=== PATIENT | male | born 1960 | race Caucasian/White ===

== ENCOUNTER → 2016-02-22 | Day surgery (SDC) | payer BC ==
[~2016-02-22] MED LIST: Buffered Lidocaine 1% SYR 3ML* 3 ML/SYR SYRINGE INTRADERM ONE; Buffered Lidocaine 1% SYR 3ML* 3 ML/SYR SYRINGE ONE; Bupivacaine 0.5% W/EPI SDV* 30 ML VIAL ONE; DiMENhydriNATE IV* 50 MG/ML VIAL IV PUSH PRN; EPINEPHrine AMP 1 MG/ML ONE; Famotidine TAB* 20 MG ONE; Famotidine TAB* 20 MG PO ONE; HYDROcodone/ACETAMIN 5-325 MG* 1 TAB ONE; HYDROcodone/ACETAMIN 5-325 MG* 1 TAB PO PRN; HYDROmorphone INJ* 1 MG/ML CARPUJECT SYRINGE ONE; Metoclopramide TAB* 10 MG ONE; Metoclopramide TAB* 10 MG PO ONE; Midazolam* 1 MG/ML 5 ML VIAL (5 MG) ONE; Ondansetron INJ* 2 MG/ML VIAL IV PRN; Propofol* 10 MG/ML 20 ML BTL IV PUSH ONE; Sodium Citrate/Citric Acid* 15 ML UDC ONE; Sodium Citrate/Citric Acid* 15 ML UDC PO ONE; Succinylcholine* 20 MG/ML 10 ML VIAL ONE; ceFAZolin 1 GM in Dextrose (*) 1 GM/50 ML BAG IVPB ONE; ceFAZolin 2 GM PREMIX (*) 2 GM/50 ML BAG IVPB ONE; celeCOXIB CAP* 100 MG ONE; celeCOXIB CAP* 200 MG PO ONE; fentaNYL* 50 MCG/ML 2 ML VIAL (100 MCG VIAL) ONE
[2016-02-22] MEDS: HYDROmorphone INJ* 1 MG/ML CARPUJECT SYRINGE IV PRN ×2 (12:32→12:50)
[2016-02-22] MEDS: fentaNYL* 50 MCG/ML 2 ML VIAL (100 MCG VIAL) IV PRN ×2 (12:33→12:51)
[2016-02-22 13:47] VITALS: BP 138/87
--- NOTE | 2016-02-24 15:43 | OP ---
OPERATIVE REPORT: DATE OF OPERATION: 02/22/16 DATE OF : 56 SURGEON: Ian Kumar MD. BOAT DIESEL MOTOR MECHANIC: JACQUELINE Shetty. ANESTHESIA: General anesthesia, regional anesthesia. PRE-OP DIAGNOSES: 1. Left shoulder subacromial impingement. 2. Left shoulder AC joint arthritis. 3. Left shoulder possible proximal biceps tendonitis. 4. Mild left shoulder glenohumeral joint osteoarthritis. POST-OP DIAGNOSES: 1. Left shoulder subacromial impingement. 2. Left shoulder AC joint arthritis. 3. Left shoulder superior labral tear. 4. No left shoulder proximal biceps tendonitis. 5. Mild left shoulder glenohumeral joint osteoarthritis. OPERATIVE PROCEDURES: 1. Left shoulder arthroscopic distal clavicle resection. 2. Left shoulder arthroscopic subacromial decompression. 3. Left shoulder arthroscopic debridement to the superior labrum as well as release, arthroscopic, of the proximal biceps tendon. INDICATIONS: The patient is a 55-year-old man, right-hand dominant, self-employed welder fitter apprentice and [email or web address] with a long history of bilateral shoulder pain. He had much pain with pushing, pulling, and li fting of heavy equipment, as heavy as 100 pounds that he uses at work. The patient complained of a long history of superior pain as well as lateral upper arm pain, left worse than right. He had been seen by Dr. Hair and Dr. Garcia many times in previous years with treatment including cortisone i njections of bilateral shoulders as well as physical therapy as well as long courses of NSAID use. Of note, when the patient was being worked up several years ago by Dr. Hair and Dr. Garcia, x-rays of the right shoulder showed a fibrous benign lesion, likely, but the patient was referred to [facility] to see a tumor doctor just to make sure. The tumor doctor cleared him and told him that this wa s in fact just a fibrous benign lesion, but the patient stopped his orthopedic clinic visits for sev eral years thereafter. The patient has been using a lidocaine patch more recently over the left trini ulder. Exam had shown positive Neer and Cabrera sign, AC joint tenderness to palpation and pain wit h cross-body abduction. The proximal biceps in the bicipital groove was tender to palpation, althou gh there was a negative Speed's test. Of note, the patient is on chronic narcotics for lumbago and weighs 300 pounds for a BMI of 40.7. He had no night pain, no neck pain, and no numbness and tingli ng. X-rays showed mild to moderate glenohumeral joint narrowing, but he did not have significant or really any loss of passive range of motion of the shoulder and his complaints on exam were otherwis e consistent with his pain being caused by AC joint arthritis and subacromial impingement rather char n the glenohumeral joint arthritis itself. X-rays showed AC joint narrowing and bony hypertrophy an d an MRI showed AC joint osteoarthritis and tendinosis of the supraspinatus. It also showed osteoph ytes in the glenohumeral joint. The patient opted for surgical management. ANTIBIOTICS: Ancef 3 g IV. ESTIMATED BLOOD LOSS: Minimal. COMPLICATIONS: None. SPECIMENS: None. IMPLANTS: None. DESCRIPTION OF PROCEDURE: Preoperative written consent. Operative extremity was marked in preopera tive holding. The patient was taken back to the operating and placed supine on the operating room t able. Anesthesia then did a regional interscalene block. The patient was then placed on the operat ing room table and sedated and intubated. He was then turned into the lateral decubitus position wi th the left side up. A chatterjee bag was insufflated, all bony prominences were padded, and an axillary roll was placed. The left upper arm was placed in 15 pounds of traction. The left shoulder was pre pped and draped. Surgical time-out was performed. The left shoulder was entered from posterior wit h a spinal needle and 30 mL of normal saline was injected. A standard posterior glenohumeral joint portal was then made. Diagnostic arthroscopy was commenced. There was no supraspinatus or infraspi natus or subscapularis rotator cuff tear visible. There was narrowing of the glenohumeral joint spa ce and it seemed, some fraying and thinning of the articular cartilage on both sides. The patient w as noted to have very large labrum, anterior superior and posterior. The biceps itself did not have fraying or tearing, but I could not visualize yet the superior labrum. An anterior glenohumeral po rtal was established under direct visualization. I then used a shaver and an arthroscopic probe to lift up the superior labrum. This showed there was at least 5 mm lift off the superior labrum and t here was clearly an unstable superior labral tear. I debrided some of the superior labrum, its fray ed edges with an arthroscopic shaver. I then used arthroscopic scissors to cut the proximal biceps just off its origin. Instruments and probe were removed from the glenohumeral joint. I then entere d the subacromial space from anterior and posterior. I then established a lateral subacromial connie l under direct visualization. Significant bursitis was encountered and this was debrided with an ar throscopic shaver. I then used an arthroscopic jessica to resect approximately 5 mm of the inferior un dersurface of the anterior hook of the acromion. The AC joint was then visualized. Debrided signif icant amount of bursitis around it. The AC joint itself was difficult to visualize given that there was really no space whatsoever between the two bones. I found it nicely by using a spinal needle f rom above. I then debrided 8 mm of the distal end of the clavicle using arthroscopic jessica. All ins truments and fluid were removed from the subacromial space. Of note, no rotator cuff tear had been visible from the subacromial space also. Skin incisions were closed with [id number] stitches u sing nylon 4-0 sutures. Xeroform, 4x4s, ABD, foam tape. The patient was turned to the supine positi on, awakened and extubated, and brought to the PACU. DISPOSITION: The patient postoperatively will receive oxycodone for pain control, over and above th e baseline Vicodin 10/325 that he takes for his lumbago daily. He also received Keflex and aspirin. He will follow up with me 10 to 14 days postoperatively and he will wean out of the sling in the n ext several days as comfort allows. [id number]/[facility] #: [id number]
== END | disposition home or self-care (01) ==
LOC: OR 07:44
PROVIDERS: ATTEND Orthopaedic Surgery
DX: M75.42 Impingement syndrome of left shoulder (principal); M19.012 Primary osteoarthritis, left shoulder; Z87.891 Personal history of nicotine dependence; E66.01 Morbid (severe) obesity due to excess calories; I45.10 Unspecified right bundle-branch block
CPT/HCPCS: A9270-GY; J0171; J0330; J0690; J1170; J2250; J2704; J3010

== ENCOUNTER 2018-12-12 08:36 | Emergency (ER) | payer BC ==
--- OUTSIDE RECORDS SUMMARY | 2018-12-12 08:51 | XMS REPORT | Continuity of Care Document ---
:1960 External Reference #:[id number] Author Name Augie Santana M.D. Address [address] [facility] [address] [place] [address] Care Team Providers Name Role Phone HCP given Care Team Information Supervisor [facility] - Pain Medicine Care Team Information Supervisor Tellers [phone] Luis Miguel Acevedo DO - Pain Medicine Care Team Information Supervisor Tellers [phone] Problems Active Problems Provider Date Essential hypertension Augie Santana M.D. Onset: 07/08/2017 Chronic pain syndrome Augie Santana M.D. Onset: 07/08/2017 Migraine without aura, not refractory Augie Santana M.D. Onset: 06/30/2018 Long-term current use of opiate analgesic Augie Santana M.D. Onset: 2018 drug Obesity Augie Santana M.D. Onset: 06/30/2018 Low back pain Augie Santana M.D. Onset: 06/30/2018 Degeneration of lumbar intervertebral disc Augie Santana M.D. Onset: 06/30 Alcohol abuse Augie Santana M.D. Onset: 03/22/2018 Opioid dependence with withdrawal Auige Santana M.D. Onset: 03/22/2018 Social History Type Date Description Comments Sex Unknown Tobacco Use Start: Unknown End: Former Cigarette Smoker quit in 1999 Unknown Smoking Status Reviewed: 06/02/17 Former Cigarette Smoker quit in 1999 ETOH Use 06/02/2017 Currently consumes alcohol "quite a bit", mainly on weekends, will have 18 light beers over the weekend, may have a couple of beers on weekend nights. Allergies, Adverse Reactions, Alerts Description No Known Drug Allergies Medications Active Medications SIG Qnty Indications Ordering Date Provider Methadone HCL 1 tab by mouth 90tabs G89.4 Silcoff, 10/01/2018 5mg 2-3x/day for chronic Mario Ghosh Tablets pain Hydrocodone-Acetami 1 tab up to 4x/day 120tabs G89.4 Silcoff, 09/08/2018 nophen for breakthrough Mario Ghosh 10-325mg pain Tablets Losartan take one tablet by 90tabs I10 Silcoff, 08/30/2018 Potassium/Hydrochlo mouth every morning Mario Ghosh rothiazide for high blood pressure 100-12.5mg Tablets Amlodipine Besylate take 1 tablet by 90tabs I10 Silcoff, 06/01/2017 mouth every day for Mario Ghosh 10mg Tablets high blood pressure Sumatriptan take 1/2-1 tablet by 9tabs G43.009 Silcoff, 06/01/2017 Succinate mouth at first sign Mario Ghosh 100mg of intense headache; Tablets may repeat in 2 hours if migraine partially relieved; max 3/wk Melatonin prn sleep Unknown 06/01/2017 Zzzquil prn sleep Unknown 06/01/2017 50mg/30ML Liquid History Medications Methadone HCL 1 tab by mouth 90tabs G89.4 Augie Santana, 09/08/2018 - 5mg 3x/day for M.D. 10/01/2018 Tablets chronic pain Methadone HCL 1 tab by mouth 20tabs G89.4 Augie Santana, 08/30/2018 - 5mg twice a day for M.D. 09/08/2018 Tablets chronic pain; after 3 days (ie 4th day on this med) may increase to 1.5 tabs 2x/d Immunizations CPT Code Status Date Vaccine Lot # [id number] Given 10/28/2017 Shingrix Zoster (Shingles) Vaccine (HZV) [id number] Recomb,Subnit,Adjuvanted [id number] Given 10/28/2017 Influenza Virus Vaccine, Quadrivalent, Split, [id number] Preservative Free [id number] Given 06/02/2017 Shingrix Zoster (Shingles) Vaccine (HZV) [id number] Recomb,Subnit,Adjuvanted Vital Signs Date Vital Result Comment 11/02/2018 4:57pm BP Systolic 148 mmHg BP Diastolic 80 mmHg 10/01/2018 4:07pm BP Systolic 136 mmHg BP Diastolic 80 mmHg Height 71.50 inches 5'11.50" Weight 339.00 lb BMI (Body Mass Index) 46.6 kg/m2 Results Test Date Facility Test Result H/L Range Note Basic Metabolic Panel 10/29/2018 [facility] Sodium 138 mmol/L Normal 135-145 [phone] Potassium 4.2 mmol/L Normal 3.5-5.0 Chloride 106 mmol/L Normal 101-111 Co2 Carbon Dioxide 24 mmol/L Normal 22-32 Anion Gap 8 mmol/L Normal 2-11 Glucose 102 mg/dL High 70-100 Blood Urea Nitrogen 20 mg/dL Normal 6-24 Creatinine 0.83 mg/dL Normal 0.67-1.17 BUN/Creatinine Ratio 24.1 High 8-20 Calcium 9.4 mg/dL Normal 8.6-10.3 Egfr Non- 94.8 >60 Egfr 114.7 >60 1 1 Because ethnic data is not always readily available, this report includes an eGFR for both -Americans and non- Americans. The National Kidney Disease Education Program (NKDEP) does not endorse the use of the MDRD equation for patients that are not between the ages of 18 and 70, are , have extremes of body size, muscle mass, or nutritional status, or are non- or non-. According to the National Kidney Foundation, irrespective of diagnosis, the stage of the disease is based on the level of kidney function: Stage Description GFR(mL/min/1.73 m(2)) 1 Kidney damage with normal or decreased GFR 90 2 Kidney damage with mild decrease in GFR 60-89 3 Moderate decrease in GFR 30-59 4 Severe decrease in GFR 15-29 5 Kidney failure <15 (or dialysis) Procedures Date Code Description Status 07/27/2017 [id number] Colonoscopy Completed Medical Devices Description No Information Available Encounters Type Date Location Provider Dx Diagnosis Office Visit 10/01/2018 Main Office Augie Santana G89.4 Chronic pain 4:00p M.D. syndrome M51.36 Other intervertebral disc degeneration, lumbar region M54.5 Low back pain Z79.891 rodent exterminator (current) use of opiate analgesic I10 Essential (primary) hypertension F10.10 Alcohol abuse, uncomplicated Z68.42 Body mass index (BMI) 45.0-49.9, adult Office Visit 09/08/2018 9:00a Main Office Augie Santana, G89.4 Chronic pain M.D. syndrome F11.20 Opioid dependence, uncomplicated M51.36 Other intervertebral disc degeneration, lumbar region M54.5 Low back pain I10 Essential (primary) hypertension F10.10 Alcohol abuse, uncomplicated Office Visit 08/30/2018 9:15a Main Office Augie Santana, I10 Essential (primary) M.D. hypertension Z79.891 rodent exterminator (current) use of opiate analgesic G89.4 Chronic pain syndrome M51.36 Other intervertebral disc degeneration, lumbar region M54.5 Low back pain F10.10 Alcohol abuse, uncomplicated R53.83 Other fatigue E66.9 Obesity, unspecified Z71.89 Other specified counseling Office Visit 06/30/2018 4:30p Main Office Augie Santana M.D. R05 Cough R06.2 Wheezing G89.4 Chronic pain syndrome Z79.891 rodent exterminator (current) use of opiate analgesic F10.10 Alcohol abuse, uncomplicated I10 Essential (primary) hypertension G43.009 Migraine w/o aura, not intractable, w/o status migrainosus M51.36 Other intervertebral disc degeneration, lumbar region M54.5 Low back pain E66.9 Obesity, unspecified Assessments Date Code Description Provider 11/02/2018 G89.4 Chronic pain syndrome Augie Santana M.D. 11/02/2018 M51.36 Other intervertebral disc degeneration, Augie Santana M.D. lumbar region 11/02/2018 M54.5 Low back pain Augie Santana M.D. 11/02/2018 Z79.891 rodent exterminator (current) use of opiate analgesic Augie Santana M.D. 11/02/2018 M79.671 Pain in right foot Augie Santana M.D. 11/02/2018 M25.571 Pain in right ankle and joints of right foot Augie Santana M.D. 11/02/2018 M72.2 Plantar fascial fibromatosis Augie Santana M.D. 11/02/2018 Z23 Encounter for immunization Augie Santana M.D. 11/02/2018 I10 Essential (primary) hypertension Augie Santana M.D. 10/01/2018 G89.4 Chronic pain syndrome Augie Santana M.D. 10/01/2018 M51.36 Other intervertebral disc degeneration, Augie Santana M.D. lumbar region 10/01/2018 M54.5 Low back pain Augie Santana M.D. 10/01/2018 Z79.891 correction (current) use of opiate analgesic Augie Santana M.D. 10/01/2018 I10 Essential (primary) hypertension Augie Santana M.D. 10/01/2018 F10.10 Alcohol abuse, uncomplicated Augie Santana M.D. 10/01/2018 Z68.42 Body mass index (BMI) 45.0-49.9, adult Augie Santana M.D. 09/08/2018 G89.4 Chronic pain syndrome Augie Santana M.D. 09/08/2018 F11.20 Opioid dependence, uncomplicated Augie Santana M.D. 09/08/2018 M51.36 Other intervertebral disc degeneration, Augie Santana M.D. lumbar region 09/08/2018 M54.5 Low back pain Augie Santana M.D. 09/08/2018 I10 Essential (primary) hypertension Augie Santana M.D. 09/08/2018 F10.10 Alcohol abuse, uncomplicated Augie Santana M.D. 08/30/2018 I10 Essential (primary) hypertension Augie Santana M.D. 08/30/2018 Z79.891 correction (current) use of opiate analgesic Augie Santana M.D. 08/30/2018 G89.4 Chronic pain syndrome Augie Santana M.D. 08/30/2018 M51.36 Other intervertebral disc degeneration, Augie Santana M.D. lumbar region 08/30/2018 M54.5 Low back pain Augie Santana M.D. 08/30/2018 F10.10 Alcohol abuse, uncomplicated Augie Santana M.D. 08/30/2018 R53.83 Other fatigue Augie Santana M.D. 08/30/2018 E66.9 Obesity, unspecified Augie Santana M.D. 08/30/2018 Z71.89 Other specified counseling Augie Santana M.D. 06/30/2018 R05 Cough Augie Santana M.D. 06/30/2018 R06.2 Wheezing Augie Santana M.D. 06/30/2018 G89.4 Chronic pain syndrome Augie Santana M.D. 06/30/2018 Z79.891 rodent exterminator (current) use of opiate analgesic Augie Santana M.D. 06/30/2018 F10.10 Alcohol abuse, uncomplicated Augie Santana M.D. 06/30/2018 I10 Essential (primary) hypertension Augie Santana M.D. 06/30/2018 G43.009 Migraine without aura, not intractable, Augie Santana M.D. without status migra 06/30/2018 M51.36 Other intervertebral disc degeneration, Augie Santana M.D. lumbar region 06/30/2018 M54.5 Low back pain Augie Santana M.D. 06/30/2018 E66.9 Obesity, unspecified Augie Santana M.D. Plan of Treatment 11/02/2018 - Augie Santana M.D.G89.4 Chronic pain syndromeComments:He will try and inc methadone to 3 tabs/day (will try 1.5 tabs=7.5mg/dose). Continue prn hydrocodoneup to qid.M51.36 Other intervertebral disc degeneration, lumbar ebrvrkB23.5 Low back painZ79.891 rodent exterminator (current) use of opiate mudqnnxenD96.671 Pain in right footM25.571 Pain in right ankle and joints of right footComments:better post steroid injection per Dr Cesar72.2 Plantar fascial fibromatosisComments:Ongoing now a period of years. We spoke about it May 2017 and he states it was probably an issue for a couple of years before that. Discussed that given all he has tried for it to date w/o relief hemay need to consider surgery, and that this would surely interfere w/ his ability to work, and that if he wanted to pursue this he would need to address it w/ Dr Sánchez.Z23 Encounter for immunizationComments:Encouraged flu vaccine wc was accepted. VIS provided.I10 Essential (primary) hypertensionComments:BP is a little high again today. If remainds >140 at next ov consider inc dose HCTZ Functional Status Description No Information Available Mental Status Description No Information Available Referrals Description No Information Available
--- OUTSIDE RECORDS SUMMARY | 2018-12-12 08:51 | XMS REPORT | Continuity of Care Document ---
:1960 External Reference #:[id number] Author Name Dedrick Dalal D.O. Address [address] [place] [address] Care Team Providers Name Role Phone HCP given Care Team Information Manager Style Unavailable Pain Clinic - Pain Medicine Care Team Information Manager Style [phone] Luis Miguel Acevedo DO - Pain Medicine Care Team Information Manager Style [phone] Problems Active Problems Provider Date Essential hypertension [...] M.D. Onset: 03/22/2018 Opioid dependence with withdrawal Augie Santana M.D. Onset: 03/22/2018 Social History Type Date Description Comments Sex Unknown Tobacco Use Start: Unknown End: Former Cigarette Smoker quit in 1999 Unknown Smoking Status Reviewed: 11/29/18 Former Cigarette Smoker quit in 1999 ETOH Use 06/02/2017 Currently consumes alcohol "quite a bit", mainly on weekends, will have 18 light beers over the weekend, may have a couple of beers on weekend nights. Allergies, Adverse Reactions, Alerts Description No Known Drug Allergies Medications Active Medications SIG Qnty Indications Ordering Provider Date Hydrocodone-Acetamin take 2 tablets 42tabs G89.4 Dedrick Dalal, 2018 ophen every 8 hours; as D.O. 10-325mg discussed 30 day Tablets rxn will be addressed with PCP @ appt 12/08. Methadone HCL 1 tab by mouth 90tabs G89.4 Augie Santana, 10/01/2018 5mg 2-3x/day for M.D. Tablets chronic pain Losartan take one tablet by 90tabs I10 Augie Santana, 08/30/2018 Potassium/Hydrochlor mouth every M.D. othiazide morning for high 100-12.5mg blood pressure Tablets Amlodipine Besylate take 1 tablet by 90tabs I10 Augie Santana, 2017 mouth every day M.D. 10mg Tablets for high blood pressure Sumatriptan take 1/2-1 tablet 9tabs G43.009 Augie Santana, 06/01/2017 Succinate by mouth at first M.D. 100mg sign of intense Tablets headache; may repeat in 2 hours if migraine partially relieved; max 3/wk Melatonin prn sleep Unknown 06/01/2017 Zzzquil prn sleep Unknown 06/01/2017 50mg/30ML Liquid History Medications Methadone HCL 1 tab by mouth 90tabs G89.4 Augie Santana, 09/08/2018 - 3x/day for chronic M.D. 10/01/2018 5mg Tablets pain Hydrocodone-Aceta 1 tab up to 4x/day 120tabs G89.4 Augie Santana, 2018 - minophen for breakthrough M.D. 11/29/2018 pain 10-325mg Tablets Methadone HCL 1 tab by mouth twice 20tabs G89.4 Augie Santana, 2018 - a day for chronic M.D. 09/08/2018 5mg Tablets pain; after 3 days (ie 4th day on this med) may increase to 1.5 tabs 2x/d Immunizations CPT Code Status Date Vaccine Lot # [id number] Given 11/02/2018 Influenza Virus Vaccine, Quadrivalent, Split, [id number] Preservative Free 34306 Given 10/28/2017 Shingrix Zoster (Shingles) Vaccine (HZV) [id number] Recomb,Subnit,Adjuvanted 54972 Given 10/28/2017 Influenza Virus Vaccine, Quadrivalent, Split, [id number] Preservative Free 67639 Given 06/02/2017 Shingrix Zoster (Shingles) Vaccine (HZV) [id number] Recomb,Subnit,Adjuvanted Vital Signs Date Vital Result Comment 11/29/2018 2:28pm BP Systolic 138 mmHg BP Diastolic 74 mmHg Weight 330.00 lb 11/02/2018 4:57pm BP Systolic 148 mmHg BP Diastolic 80 mmHg Results Test Acquired Date Facility Test Result H/L Range Note Basic Metabolic 10/29/2018 [facility] Sodium 138 mmol/L Normal 135- 145 Panel [phone] Potassium 4.2 mmol/L Normal 3.5-5.0 Chloride 106 [...] dialysis) Procedures Date Code Description Status 07/27/2017 [id number] Colonoscopy Completed Medical Devices Description No Information Available Encounters Type Date Location Provider Dx Diagnosis Office Visit 11/29/2018 Main Office Dedrick Dalal G89.4 Chronic pain 2:15p D.O. syndrome M51.36 Other intervertebral disc degeneration, lumbar region M54.5 Low back pain Z79.891 [employer] (current) use of opiate analgesic I10 Essential (primary) hypertension F10.10 Alcohol abuse, uncomplicated F11.20 Opioid dependence, uncomplicated H91.93 Unspecified hearing loss, bilateral Office Visit 11/02/2018 4:45p Main Office Augie Santana G89.4 Chronic pain M.D. syndrome M51.36 Other intervertebral disc degeneration, lumbar region M54.5 Low back pain Z79.891 [facility] (current) use of opiate analgesic M79.671 Pain in right foot M25.571 Pain in right ankle and joints of right foot M72.2 Plantar fascial fibromatosis Z23 Encounter for immunization I10 Essential (primary) hypertension Office Visit 10/01/2018 4:00p Main Office Augie Santana G89.4 Chronic pain M.D. syndrome M51.36 Other intervertebral disc degeneration, lumbar region M54.5 Low back pain Z79.891 [facility] (current) use of opiate analgesic I10 Essential (primary) hypertension F10.10 Alcohol abuse, uncomplicated Z68.42 Body mass index (BMI) 45.0-49.9, adult Office Visit 09/08/2018 9:00a Main Office Augie Santana G89.4 Chronic pain M.D. syndrome F11.20 Opioid dependence, uncomplicated M51.36 Other intervertebral disc degeneration, lumbar region M54.5 Low back pain I10 Essential (primary) hypertension F10.10 Alcohol abuse, uncomplicated Office Visit 08/30/2018 9:15a Main Office Augie Santana I10 Essential (primary) M.D. hypertension Z79.891 [employer] (current) use of opiate analgesic G89.4 Chronic pain syndrome M51.36 Other intervertebral disc degeneration, lumbar region M54.5 Low back pain F10.10 Alcohol abuse, uncomplicated R53.83 Other fatigue E66.9 Obesity, unspecified Z71.89 Other specified counseling Office Visit 06/30/2018 4:30p Main Office Augie Santana M.D. R05 Cough R06.2 Wheezing G89.4 Chronic pain syndrome Z79.891 [facility] (current) use of opiate analgesic F10.10 Alcohol abuse, uncomplicated I10 Essential (primary) hypertension G43.009 Migraine w/o aura, not intractable, w/o status migrainosus M51.36 Other intervertebral disc degeneration, lumbar region M54.5 Low back pain E66.9 Obesity, unspecified Assessments Date Code Description Provider 11/29/2018 G89.4 Chronic pain syndrome Dedrick Dalal D.ORay 11/29/2018 M51.36 Other intervertebral disc degeneration, Dedrick Dalal D.ORay lumbar region 11/29/2018 M54.5 Low back pain Dedrick Dalal D.ORay 11/29/2018 Z79.891 [facility] (current) use of opiate analgesic Dedrick Dalal D.ORay 11/29/2018 I10 Essential (primary) hypertension Dedrick Dalal D.ORay 11/29/2018 F10.10 Alcohol abuse, uncomplicated Dedrick Dalal D.O. 11/29/2018 F11.20 Opioid dependence, uncomplicated Dedrick Dalal D.O. 11/29/2018 H91.93 Unspecified hearing loss, bilateral Dedrick Dalal D.ORay 11/02/2018 G89.4 Chronic pain syndrome Augie Santana M.D. 11/02/2018 M51.36 Other intervertebral disc degeneration, Augie Santana M.D. lumbar region 11/02/2018 M54.5 Low back pain Augie Santana M.D. 11/02/2018 Z79.891 [facility] (current) use of opiate analgesic Augie Santana [...] back pain Augie Santana M.D. 10/01/2018 Z79.891 [employer] (current) use of opiate analgesic Augie Santana M.D. 10/01/2018 I10 Essential (primary) hypertension Augie Santana M.D. 10/01/2018 F10.10 Alcohol abuse, uncomplicated Augie Santana M.D. 10/01/2018 Z68.42 Body mass index (BMI) 45.0-49.9, adult Augie Santana M.D. 09/08/2018 G89.4 Chronic pain syndrome Augie Santana M.D. 09/08/2018 F11.20 Opioid dependence, Augie Lozano M.D. 09/08/2018 M51.36 Other intervertebral disc degeneration, Augie Santana M.D. lumbar region 09/08/2018 M54.5 Low back pain Augie Santana M.D. 09/08/2018 I10 Essential (primary) hypertension Augie Santana M.D. 09/08/2018 F10.10 Alcohol abuse, uncomplicated Augie Santana M.D. 08/30/2018 I10 Essential (primary) hypertension Augie Santana M.D. 08/30/2018 Z79.891 [facility] (current) use of opiate analgesic Augie Santana [...] pain syndrome Augie Santana M.D. 06/30/2018 Z79.891 [facility] (current) use of opiate analgesic Augie Santana [...] unspecified Augie Santana M.D. Plan of Treatment Future Appointment(s):12/08/2018 3:45 pm - Augie Santana M.D. at Main Opglvf7911/29/2018 - Dedrick Dalal D.O.G89.4 Chronic pain syndromeNew Medication :Hydrocodone-Acetaminophen 10-325 mg - take 2 tablets every 8 hours; as discussed 30 day rxn will be addressed with PCP @ appt 12/08.Comments:Discussed temporary fill at higher dose only. He will need to follow up in a short time with PCP todecide on the best way forward for treating his chronic pain.Follow up:f/u w/ HSM51.36 Other intervertebral disc degeneration, lumbar ypzihuF28.5 Low back painZ79.891 [facility] (current) use of opiate kiwohrjwqQ18 Essential ( primary) dcrglopdpusdL38.10 Alcohol abuse, ntgbwfyvfvuqtK44.20 Opioid dependence , sfptfadcegtsxV45.93 Unspecified hearing loss, bilateral Functional Status Description No Information Available Mental Status Description No Information Available Referrals Description No Information Available
--- OUTSIDE RECORDS SUMMARY | 2018-12-12 08:51 | XMS REPORT | Continuity of Care Document ---
:1960 External Reference #:[id number] Author Name Augie Santana M.D. Address [address] [facility] [address] [place] [address] Care Team Providers Name Role Phone HCP given Care Team Information Materials And Processes Manager Unavailable [facility] - Pain Medicine Care Team Information Materials And Processes Manager [phone] Luis Miguel Acevedo DO - Pain Medicine Care Team Information Materials And Processes Manager [phone] Problems Active Problems Provider Date Essential hypertension [...] Qnty Indications Ordering Date Provider Methadone HCL take 1 tablet by 60tabs G89.4 Augie Santana, 12/08/2018 10mg mouth 2x/day; for M.D. Tablets chronic pain Hydrocodone-Acetamin take 2 tablets 180tabs G89.4 Augie Santana, 2018 ophen every 8 hours for M.D. 10-325mg severe pain Tablets Losartan take one tablet by [...] by mouth 90tabs G89.4 Augie Santana, 10/01/2018 - 2-3x/day for chronic M.D. 12/08/2018 5mg Tablets pain Methadone HCL 1 tab by mouth 90tabs [...] CPT Code Status Date Vaccine Lot # [id number] Given 11/02/2018 Influenza Virus Vaccine, Quadrivalent, Split, [id number] Preservative Free 18337 Given 10/28/2017 Shingrix Zoster (Shingles) Vaccine (HZV) [id number] Recomb,Subnit,Adjuvanted 93754 Given 10/28/2017 Influenza Virus Vaccine, Quadrivalent, Split, [id number] Preservative Free 90809 Given 06/02/2017 Shingrix Zoster (Shingles) Vaccine (HZV) [id number] Recomb,Subnit,Adjuvanted Vital Signs Date Vital Result Comment 12/08/2018 4:49pm BP Systolic 128 mmHg BP Diastolic 76 mmHg 11/29/2018 2:28pm BP Systolic 138 mmHg BP Diastolic 74 mmHg Weight 330.00 lb Results Test Acquired Date Facility Test Result H/L Range Note Basic Metabolic 10/29/2018 [facility] Sodium 138 mmol/L Normal 135- 145 Panel [phone] Potassium 4.2 mmol/L Normal 3.5-5.0 Chloride 106 [...] dialysis) Procedures Date Code Description Status 07/27/2017 [id number] Colonoscopy Completed Medical Devices Description No Information Available Encounters Type Date Location Provider Dx Diagnosis Office Visit 12/08/2018 Main Office Augie Santana, Mario Essential ( primary) 3:45p M.D. hypertension M54.5 Low back pain M51.36 Other intervertebral disc degeneration, lumbar region G89.4 Chronic pain syndrome M54.16 Radiculopathy, lumbar region Z79.891 [facility] (current) use of opiate analgesic Office Visit 11/29/2018 2:15p Main Office Dedrick Dalal G89.4 Chronic pain D.O. syndrome M51.36 Other intervertebral disc degeneration, lumbar region M54.5 Low back pain Z79.891 [employer] agent (current) use of opiate analgesic I10 Essential (primary) hypertension F10.10 Alcohol abuse, uncomplicated F11.20 Opioid dependence, uncomplicated H91.93 Unspecified hearing loss, bilateral Office Visit 11/02/2018 4:45p Main Office Augie Santana G89.4 Chronic pain M.D. syndrome M51.36 Other intervertebral disc degeneration, lumbar region M54.5 Low back pain Z79.891 [employer] agent (current) use of opiate analgesic M79.671 Pain in right foot M25.571 Pain in right ankle and joints of right foot M72.2 Plantar fascial fibromatosis Z23 Encounter for immunization I10 Essential (primary) hypertension Office Visit 10/01/2018 4:00p Main Office Augie Santana G89.4 Chronic pain M.D. syndrome M51.36 Other intervertebral disc degeneration, lumbar region M54.5 Low back pain Z79.891 [employer] agent (current) use of opiate analgesic I10 Essential [...] Santana I10 Essential (primary) M.D. hypertension Z79.891 [facility] (current) use of opiate analgesic G89.4 Chronic pain syndrome M51.36 Other intervertebral disc degeneration, lumbar region M54.5 Low back pain F10.10 Alcohol abuse, uncomplicated R53.83 Other fatigue E66.9 Obesity, unspecified Z71.89 Other specified counseling Office Visit 06/30/2018 4:30p Main Office Augie Santana M.D. R05 Cough R06.2 Wheezing G89.4 Chronic pain syndrome Z79.891 [facility] (current) use of opiate analgesic F10.10 Alcohol abuse, uncomplicated I10 Essential (primary) hypertension G43.009 Migraine w/o aura, not intractable, w/o status migrainosus M51.36 Other intervertebral disc degeneration, lumbar region M54.5 Low back pain E66.9 Obesity, unspecified Assessments Date Code Description Provider 12/08/2018 I10 Essential (primary) hypertension Augie Santana M.D. 12/08/2018 M54.5 Low back pain Augie Santana M.D. 12/08/2018 M51.36 Other intervertebral disc degeneration, Augie Santana M.D. lumbar region 12/08/2018 G89.4 Chronic pain syndrome Augie Santana M.D. 12/08/2018 M54.16 Radiculopathy, lumbar region Augie Santana M.D. 12/08/2018 Z79.891 [facility] (current) use of opiate analgesic Augie Santana M.D. 11/29/2018 G89.4 Chronic pain syndrome Dedrick Dalal D.O. 11/29/2018 M51.36 Other intervertebral disc degeneration, Dedrick Dalal D.O. lumbar region 11/29/2018 M54.5 Low back pain Dedrick Dalal D.O. 11/29/2018 Z79.891 [employer] agent (current) use of opiate analgesic Dedrick Dalal D.O. 11/29/2018 I10 Essential (primary) hypertension Dedrick Dalal D.O. 11/29/2018 F10.10 Alcohol abuse, uncomplicated Dedrick Dalal D.O. 11/29/2018 F11.20 Opioid dependence, uncomplicated Dedrick Dalal D.O. 11/29/2018 H91.93 Unspecified hearing loss, bilateral Katlin DedrickVirgenO. 11/02/2018 G89.4 Chronic pain syndrome Augie Santana M.D. 11/02/2018 M51.36 Other intervertebral disc degeneration, Augie Santana M.D. lumbar region 11/02/2018 M54.5 Low back pain Augie Santana M.D. 11/02/2018 Z79.891 [employer] agent (current) use of opiate analgesic Augie Santana [...] back pain Augie Santana M.D. 10/01/2018 Z79.891 [facility] (current) use of opiate analgesic Augie Santana [...] (primary) hypertension Augie Santana M.D. 08/30/2018 Z79.891 [facility] (current) use of opiate analgesic Augie Santana [...] M.D. 06/30/2018 G89.4 Chronic pain syndrome Augie Santaan M.D. 06/30/2018 Z79.891 [facility] (current) use of opiate analgesic Augie Santana [...] Augie Santana M.D. Plan of Treatment Future Appointment(s):01/04/2019 9:45 am - Nurse's Schedule at Main Kmxmjr3101/04 9:45 am - Augie Santana M.D. at Main Zgfcku0412/08/2018 - Augie Santana M.D.I10 Essential (primary) sddwhnglradsH75.5 Low back painM51.36 Other intervertebral disc degeneration, lumbar pnxohpS89.4 Chronic pain syndromeNew Medication:Methadone HCL 10 mg - take 1 tablet by mouth 2x/day; for chronic painComments:Declined trial of gabapentin/Lyrica . WHile I previously advised pt that I would not inc his hydrocodone beyond 40mg/d, he is now taking 60mg/ day and hard to walk back on this. I advised him again thiswould not be raised any further.Follow up:RTO 4 weeks w/ spirometry pre and postM54.16 Radiculopathy , lumbar regionComments:He has a longstanding lumbar radiculopathy, last winter had injections through pain clinic [facility]ped. Why his insurance has denied this tx again is unknown to me. See triage, will look into thisbut ultimately it is pain clinic that should be dealing w/ PA for injection tx.Discussed option of trying a gabapentinoid but he is unwilling (cincerned re S/Es mejia fatigue).Z79.891 penitentiary (current) use of opiate analgesic Functional Status Description No Information Available Mental Status Description No Information Available Referrals Description No Information Available
[2018-12-12] MEDS ORDERED: Ketorolac *IM* INJ* 60 MG/2 ML VIAL IM ONE (09:38)
--- NOTE | 2018-12-12 09:40 | ED ---
Upper Extremity Pain - HPI Summary HPI Summary: Patient is a 58-year-old male who presents emergency department for exacerbation of chronic right shoulder pain. 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 Pt. denies any acute injury or falls. Pt. states he has seen ortho. in the past and has received cortisone injections. Pt. presents to the ER today in hopes to receive a cortisone injection stating he has important work he needs to do tomorrow. Sxs are mild in severity. Moving and using right shoulder makes sxs worse. Nothing makes sxs better. - History of Current Complaint Chief Complaint: EDShoulderCEmeterio Stated Complaint: RIGHT SHOULDER PAIN PER PT Time Seen by Provider: 12/12/18 09:19 Hx Obtained From: Patient - Allergies/Home Medications Allergies/Adverse Reactions: Allergies Allergy/AdvReac Type Severity Reaction Status Date / Time No Known Allergies Allergy Verified 12/12/18 08:41 Home Medications: Home Medications Hydrocodone/Acetaminophen [Hydrocodone-Acetamin 10-325 mg] 2 tab PO Q8HR [History Confirmed 12/12/18] Losartan/Hydrochlorothiazide [Losartan-Hctz 100-12.5 mg Tab] 12.5 mg PO DAILY [History Confirmed 12/12/18] PMH/Surg Hx/FS Hx/Imm Hx Previously Healthy: Yes Endocrine/Hematology History: Denies: Hx Diabetes Cardiovascular History: Reports: Hx Hypertension - ON DAILY MEDS Denies: Hx Pacemaker/ICD History: Denies: Hx Renal Disease Musculoskeletal History: Reports: Hx Arthritis - SHOULDERS, LOW BACK, Hx Tendonitis - CURRENT LEFT SHOULDER Sensory History: Reports: Hx Contacts or Glasses - GLASSES Denies: Hx Hearing Aid Opthamlomology History: Reports: Hx Contacts or Glasses - GLASSES Neurological History: Reports: Hx Headaches, Hx Migraine - GETS OFTEN DURING WINTER, HAS PRN MED AVAILABLE Comment Only: Other Neuro Impairments/Disorders - PAIN CLINIC PT. Psychiatric History: Denies: Hx Panic Disorder - Surgical History Surgery Procedure, Year, and Place: 2007 BILATERAL HIP REPLACEMENT AT [facility]. 2000 [place] [facility] [place] 2012 RT THUMB TENDON REPAIR Hx Anesthesia Reactions: No Infectious Disease History: No Infectious Disease History: Denies: History Other Infectious Disease, Traveled Outside the [place] in Last 30 Days - Social History Lives: With Family Alcohol Use: Weekly Alcohol Amount: 12 drinks per week Substance Use Type: Reports: None Substance Use Comment - Amount & Last Used: oxymorphone ER and hydromorphone rx' d by Dr. Acevedo Smoking Status (MU): Former Smoker Type: Cigarettes Amount Used/How Often: 2PPD 20 YRS Have You Smoked in the Last Year: No Review of Systems Constitutional: Negative Negative: Fever Positive: Other - Right shoulder pain Skin: Negative Neurological: Negative Negative: Weakness, Paresthesia, Numbness All Other Systems Reviewed And Are Negative: Yes Physical Exam Triage Information Reviewed: Yes Vital Signs On Initial Exam: Initial Vitals Temp Pulse Resp BP Pulse Ox 96.3 F 54 16 168/91 99 12/12/18 08:38 12/12/18 08:38 12/12/18 08:38 12/12/18 08:38 12/12/18 08:38 Vital Signs Reviewed: Yes Appearance: Positive: Well-Appearing - Pt. sitting on bed in NAD. Holding right arm. Skin: Positive: Warm, Dry Head/Face: Positive: Normal Head/Face Inspection Eyes: Positive: Normal, EOMI Neck: Positive: Supple Musculoskeletal: Positive: Other - Diffuse tenderness to proximal right humerous. Decreased ROM with ROM. Limited ROM with abduction. Good radial pulse. 5/5 strength in right UEs. Neurological: Positive: Normal, CN Intact II-III Psychiatric: Positive: Affect/Mood Appropriate Procedures - Sedation Patient Received Moderate/Deep Sedation with Procedure: No Diagnostics - Vital Signs Vital Signs Temp Pulse Resp BP Pulse Ox 12/12/18 08:38 96.3 F 54 16 168/91 99 - Laboratory Lab Statement: Any lab studies that have been ordered have been reviewed, and results considered in the medical decision making process. Course/Dx - Course Course Of Treatment: Patient presenting with exacerbation of right shoulder pain. Received a cortisone injection ER. Advised patient not performed cortisone injections in the emergency department. He was given a dose of Toradol for pain. Xray per radiology: IMPRESSION: 1. NO FRACTURE IDENTIFIED. 2. SUPRASPINATUS CALCIFIC TENDINOSIS. 3. THERE IS MODERATE ACROMIOCLAVICULAR OSTEOARTHROPATHY. 4. UNCHANGED PROBABLE BONE ISLAND IN THE PROXIMAL SHAFT OF THE RIGHT HUMERUS. Advised patient to continue anti- inflammatories or pain. Advised ice intermittently. To call orthopedics tomorrow for close follow-up and evaluation and care. Pt. understands and agrees with plan. - Diagnoses Differential Diagnosis/HQI/PQRI: Positive: Bursitis, Contusion, Fracture (Closed ), Strain, Sprain Provider Diagnoses: Shoulder pain, Calcifying tendinitis Discharge ED - Sign-Out/Discharge Documenting (check all that apply): Patient Departure - Discharge Plan Condition: Good Disposition: HOME Patient Education Materials: Calcific Tendinitis (ED), Shoulder Pain (ED) Referrals: Auige Santana MD [Primary Care Provider] - Cesar Hair MD [Medical Doctor] - Additional Instructions: Call the orthopedic clinic tomorrow for a close follow up appointment Recommend ibuprofen 600mg-800mg every 8 hours x 1 week for pain Ice intermittently Activity as tolerated Return to ER if symptoms change or worsen - Billing Disposition and Condition Condition: GOOD Disposition: Home
[2018-12-12 11:03] VITALS: BP 154/82
== END 2018-12-12 11:01 | disposition home or self-care (01) ==
LOC: ED 08:36
DX: M75.31 Calcific tendinitis of right shoulder (principal); I10 Essential (primary) hypertension; Z96.643 Presence of artificial hip joint, bilateral; Z87.891 Personal history of nicotine dependence; Z79.899 Other long term (current) drug therapy
CPT/HCPCS: 96372; 99282; J1885

== ENCOUNTER 2022-02-21 19:48 | Inpatient (IN) ==
[2022-02-21] MEDS ORDERED: Lactated Ringers 1000 ml BAG 1,000 ML IV ONE ×2 (20:06→21:44)
[2022-02-21 20:15] LABS: ABS Eosinophils 0.1 10^3/ul (0-0.6); ABS Lymphocytes 1.8 10^3/ul (1.0-4.8); ABS Monocytes 0.5 10^3/ul (0-0.8); Eosinophil % 2.1 %; Hematocrit 35 % (42-52); Hemoglobin 11.4 g/dL (14.0-18.0); Lymphocyte % 27.8 %; Mean Corpuscular HGB Conc 33 g/dL (31-36); Mean Corpuscular Hemoglobin 33 pg (27-31); Mean Corpuscular Volume 103 fL (80-94); Mean Platelet Volume 8.6 fL (7.4-10.4); Platelet Count 240 10^3/uL (150-450); Red Blood Count 3.41 10^6 /uL (4.18-5.48); Red Cell Distribution Width 14 % (10-15); White Blood Count 6.4 10^3/uL (3.5-10.8)
[2022-02-21] MEDS ORDERED: Ondansetron 4 mg VIAL 2 MG/ML 2 ml VIAL IV ONE ×2 (20:16→21:38)
[2022-02-21 20:24] LABS: INR 1.05 (0.88-1.18)
[2022-02-21] MEDS ORDERED: Pantoprazole 80 mg in NS BAG 80 MG/250 ML BAG IV ONE (20:48)
[2022-02-21 20:56] LABS: Albumin 3.8 g/dL (3.2-5.2); Albumin/Globulin Ratio 1.7 (1-3); Calcium 9.1 mg/dL (8.6-10.3); Creatinine, Serum 0.64 mg/dL (0.67-1.17); Globulin 2.3 g/dL (2-4); Potassium 4.3 mmol/L (3.5-5.0); Total Bilirubin 0.5 mg/dL (0.2-1.0); Total Protein 6.1 g/dL (6.4-8.9); eGFR CKD-EPI 106.4 (>60)
[2022-02-21] MEDS ORDERED: Iohexol 350 (CONTRAST) 500 ML MDV IV ONE (21:07)
[2022-02-22 01:36] LABS: Hematocrit 26 % (42-52); Hemoglobin 8.4 g/dL (14.0-18.0)
[2022-02-22] MEDS ORDERED: Lactated Ringers 1000 ml BAG 1,000 ML IV ONE ×2 (01:54→03:08)
[2022-02-22 08:20] LABS: Hematocrit 28 % (42-52); Hemoglobin 9.1 g/dL (14.0-18.0); Mean Corpuscular HGB Conc 33 g/dL (31-36); Mean Corpuscular Hemoglobin 33 pg (27-31); Mean Corpuscular Volume 100 fL (80-94); Mean Platelet Volume 8.7 fL (7.4-10.4); Platelet Count 177 10^3/uL (150-450); Red Blood Count 2.78 10^6 /uL (4.18-5.48); Red Cell Distribution Width 15 % (10-15); White Blood Count 4.7 10^3/uL (3.5-10.8)
[2022-02-22] MEDS ORDERED: Pantoprazole VIAL 40 MG VIAL IV SCH ×2 (09:00→21:00)
[2022-02-22] MEDS ORDERED: fentaNYL 100 mcg/2 ml 50 MCG/ML VIAL IV PRN (12:45)
[2022-02-22] MEDS ORDERED: Ondansetron 4 mg VIAL 2 MG/ML 2 ml VIAL IV PRN (12:45)
[2022-02-22] MEDS ORDERED: oxyCODONE/Acetamin 5/325 mg TAB PO PRN (12:45)
[2022-02-22] MEDS ORDERED: Naloxone 0.4 mg VIAL 0.4 mg/ml 1 ml VIAL IV PRN (12:45)
[2022-02-22] MEDS ORDERED: Rocuronium 50 mg VIAL 10 mg/ml 5 ml VIAL (50 mg) ONE (12:51)
[2022-02-22] MEDS ORDERED: Dexamethasone IV 4 MG/ML VIAL 1 ml VIAL ONE (12:51)
[2022-02-22] MEDS ORDERED: Ondansetron 4 mg VIAL 2 MG/ML 2 ml VIAL ONE (12:51)
[2022-02-22] MEDS ORDERED: fentaNYL 100 mcg/2 ml 50 MCG/ML VIAL ONE (12:51)
[2022-02-22] MEDS ORDERED: Propofol 10 MG/ML 20 ML BTL ONE (12:51)
[2022-02-22] MEDS ORDERED: Lidocaine 2% PF 5 ML VIAL ONE (12:52)
[2022-02-22] MEDS ORDERED: EPINEPHrine SYR 0.1MG/ML 10 ml SYRINGE ONE (14:23)
[2022-02-22 15:07] LABS: Hematocrit 31 % (42-52); Hemoglobin 10.3 g/dL (14.0-18.0); Mean Corpuscular HGB Conc 34 g/dL (31-36); Mean Corpuscular Hemoglobin 34 pg (27-31); Mean Corpuscular Volume 100 fL (80-94); Mean Platelet Volume 8.5 fL (7.4-10.4); Platelet Count 205 10^3/uL (150-450); Red Blood Count 3.06 10^6 /uL (4.18-5.48); Red Cell Distribution Width 15 % (10-15); White Blood Count 5.9 10^3/uL (3.5-10.8)
[2022-02-22] MEDS: Pantoprazole 80 mg in NS BAG 80 MG/250 ML BAG IV SCH (16:02)
[2022-02-22] MEDS ORDERED: Psyllium PAK PO SCH (17:00)
[2022-02-22] MEDS: Polyethylene Glycol 3350 17 GM PACKET PO SCH (18:19)
[2022-02-22] MEDS: Morphine 2 MG/ML SYRINGE IV PRN (19:45)
[2022-02-22 19:50] LABS: Hematocrit 29 % (42-52); Hemoglobin 9.4 g/dL (14.0-18.0); Mean Corpuscular HGB Conc 33 g/dL (31-36); Mean Corpuscular Hemoglobin 32 pg (27-31); Mean Corpuscular Volume 99 fL (80-94); Mean Platelet Volume 8.5 fL (7.4-10.4); Platelet Count 189 10^3/uL (150-450); Red Blood Count 2.92 10^6 /uL (4.18-5.48); Red Cell Distribution Width 15 % (10-15); White Blood Count 5.3 10^3/uL (3.5-10.8)
[2022-02-22] MEDS ORDERED: HYDROcodone/Acetamin 10/325 TAB (NF) PO PRN (21:36)
[2022-02-23] MEDS: Pantoprazole 80 mg in NS BAG 80 MG/250 ML BAG IV SCH ×2 (02:06→12:34)
[2022-02-23 02:22] LABS: Hematocrit 28 % (42-52); Hemoglobin 9.1 g/dL (14.0-18.0); Mean Corpuscular HGB Conc 33 g/dL (31-36); Mean Corpuscular Hemoglobin 32 pg (27-31); Mean Corpuscular Volume 99 fL (80-94); Mean Platelet Volume 8.7 fL (7.4-10.4); Platelet Count 175 10^3/uL (150-450); Red Blood Count 2.81 10^6 /uL (4.18-5.48); Red Cell Distribution Width 15 % (10-15); White Blood Count 4.5 10^3/uL (3.5-10.8)
[2022-02-23 03:34] LABS: Anion Gap 4 mmol/L (2-11); Blood Urea Nitrogen 20 mg/dL (6-24); CO2 Carbon Dioxide 26 mmol/L (22-32); Calcium 8.4 mg/dL (8.6-10.3); Chloride 108 mmol/L (101-111); Creatinine, Serum 0.49 mg/dL (0.67-1.17); Glucose 107 mg/dL (70-100); Sodium 138 mmol/L (135-145); eGFR CKD-EPI 115.3 (>60)
[2022-02-23] MEDS: CMCS: Alfuzosin ER 10 mg TAB.ER (NF) 10 MG TAB.ER PO SCH ×2 (09:03→09:07)
[2022-02-23] MEDS: Polyethylene Glycol 3350 17 GM PACKET PO SCH (09:07)
[2022-02-23 12:36] LABS: Folate > 20.00 ng/mL (5.90-24.80)
[2022-02-23 12:37] LABS: Vitamin B12 396 pg/mL (180-914)
[2022-02-23] MEDS ORDERED: Polyethylene Glycol 3350 17 GM PACKET PO ONE (16:07)
[2022-02-23] MEDS: Magnesium Hydroxide LIQ 30 ML UDC PO PRN (21:37)
[2022-02-23] MEDS: Morphine 2 MG/ML SYRINGE IV PRN (22:13)
[2022-02-24] MEDS: Pantoprazole 80 mg in NS BAG 80 MG/250 ML BAG IV SCH ×2 (00:17→11:56)
[2022-02-24] MEDS ORDERED: Senna TAB 8.6 mg TAB PO ONE (03:33)
[2022-02-24] MEDS: Magnesium Hydroxide LIQ 30 ML UDC PO PRN (03:52)
[2022-02-24 06:19] LABS: ABS Eosinophils 0.1 10^3/ul (0-0.6); ABS Lymphocytes 1.3 10^3/ul (1.0-4.8); ABS Monocytes 0.5 10^3/ul (0-0.8); ABS Neutrophils 4.4 10^3/ul (1.5-7.7); Eosinophil % 1.6 %; Hematocrit 27 % (42-52); Hemoglobin 8.9 g/dL (14.0-18.0); Lymphocyte % 20.6 %; Mean Corpuscular HGB Conc 34 g/dL (31-36); Mean Corpuscular Hemoglobin 33 pg (27-31); Mean Corpuscular Volume 98 fL (80-94); Mean Platelet Volume 9.1 fL (7.4-10.4); Platelet Count 184 10^3/uL (150-450); Red Blood Count 2.72 10^6 /uL (4.18-5.48); Red Cell Distribution Width 15 % (10-15); White Blood Count 6.3 10^3/uL (3.5-10.8)
[2022-02-24] MEDS: Polyethylene Glycol 3350 17 GM PACKET PO SCH (09:15)
[2022-02-24] MEDS: CMCS:Alfuzosin ER 10 mg TAB.ER (NF) 10 MG TAB.ER PO SCH (22:00)
[2022-02-25] MEDS: Pantoprazole 80 mg in NS BAG 80 MG/250 ML BAG IV SCH ×3 (00:28→23:28)
[2022-02-25 06:30] LABS: ABS Eosinophils 0.1 10^3/ul (0-0.6); ABS Lymphocytes 1.5 10^3/ul (1.0-4.8); ABS Monocytes 0.4 10^3/ul (0-0.8); ABS Neutrophils 2.8 10^3/ul (1.5-7.7); Eosinophil % 2.3 %; Hematocrit 26 % (42-52); Lymphocyte % 30.5 %; Mean Corpuscular HGB Conc 35 g/dL (31-36); Mean Corpuscular Hemoglobin 34 pg (27-31); Mean Corpuscular Volume 98 fL (80-94); Mean Platelet Volume 8.6 fL (7.4-10.4); Platelet Count 188 10^3/uL (150-450); Red Blood Count 2.63 10^6 /uL (4.18-5.48); Red Cell Distribution Width 14 % (10-15); White Blood Count 4.8 10^3/uL (3.5-10.8)
[2022-02-25 07:05] LABS: Calcium 8.4 mg/dL (8.6-10.3); Creatinine, Serum 0.58 mg/dL (0.67-1.17); Potassium 3.9 mmol/L (3.5-5.0); eGFR CKD-EPI 109.6 (>60)
[2022-02-25] MEDS ORDERED: Lactated Ringers 1000 ml BAG 1,000 ML IV SCH (08:00)
[2022-02-25 09:39] LABS: Hematocrit 23 % (42-52); Hemoglobin 7.6 g/dL (14.0-18.0)
[2022-02-25] MEDS: Polyethylene Glycol 3350 17 GM PACKET PO SCH (10:30)
[2022-02-25 13:50] LABS: Hematocrit 23 % (42-52); Hemoglobin 7.6 g/dL (14.0-18.0)
[2022-02-25] MEDS ORDERED: Propofol 10 MG/ML 20 ML BTL ONE (16:09)
[2022-02-25] MEDS ORDERED: Glycopyrrolate IV 0.2 MG/ML 1 ML VIAL ONE ×2 (16:09→16:14)
[2022-02-25] MEDS ORDERED: EPINEPHrine SYR 0.1MG/ML 10 ml SYRINGE ONE (16:32)
[2022-02-25 19:27] LABS: Hematocrit 26 % (42-52); Hemoglobin 8.5 g/dL (14.0-18.0)
[2022-02-25] MEDS: CMCS:Alfuzosin ER 10 mg TAB.ER (NF) 10 MG TAB.ER PO SCH (21:58)
[2022-02-25] MEDS: Morphine 2 MG/ML SYRINGE IV PRN (21:59)
[2022-02-26] MEDS: Pantoprazole 80 mg in NS BAG 80 MG/250 ML BAG IV SCH ×3 (00:48→20:56)
[2022-02-26 06:19] LABS: ABS Eosinophils 0.1 10^3/ul (0-0.6); ABS Lymphocytes 1.5 10^3/ul (1.0-4.8); ABS Monocytes 0.4 10^3/ul (0-0.8); ABS Neutrophils 2.7 10^3/ul (1.5-7.7); Eosinophil % 2.4 %; Hematocrit 21 % (42-52); Hemoglobin 7.1 g/dL (14.0-18.0); Lymphocyte % 32.4 %; Mean Corpuscular HGB Conc 34 g/dL (31-36); Mean Corpuscular Hemoglobin 33 pg (27-31); Mean Corpuscular Volume 100 fL (80-94); Mean Platelet Volume 9.2 fL (7.4-10.4); Nucleated Red Blood Cells % 0.1; Platelet Count 177 10^3/uL (150-450); Red Blood Count 2.14 10^6 /uL (4.18-5.48); Red Cell Distribution Width 14 % (10-15); White Blood Count 4.8 10^3/uL (3.5-10.8)
[2022-02-26 06:41] LABS: Calcium 8.3 mg/dL (8.6-10.3); Creatinine, Serum 0.62 mg/dL (0.67-1.17); eGFR CKD-EPI 107.4 (>60)
[2022-02-26] MEDS: Polyethylene Glycol 3350 17 GM PACKET PO SCH (08:12)
[2022-02-26 12:12] LABS: Hematocrit 24 % (42-52); Hemoglobin 7.7 g/dL (14.0-18.0)
[2022-02-26] MEDS: CMCS:Alfuzosin ER 10 mg TAB.ER (NF) 10 MG TAB.ER PO SCH (20:52)
[2022-02-26] MEDS: Morphine 2 MG/ML SYRINGE IV PRN (20:56)
[2022-02-27 07:14] LABS: ABS Eosinophils 0.1 10^3/ul (0-0.6); ABS Lymphocytes 1.3 10^3/ul (1.0-4.8); ABS Monocytes 0.4 10^3/ul (0-0.8); ABS Neutrophils 2.8 10^3/ul (1.5-7.7); Eosinophil % 2.9 %; Hematocrit 23 % (42-52); Hemoglobin 7.6 g/dL (14.0-18.0); Lymphocyte % 27.6 %; Mean Corpuscular HGB Conc 33 g/dL (31-36); Mean Corpuscular Hemoglobin 33 pg (27-31); Mean Corpuscular Volume 100 fL (80-94); Mean Platelet Volume 9.6 fL (7.4-10.4); Platelet Count 205 10^3/uL (150-450); Red Blood Count 2.28 10^6 /uL (4.18-5.48); Red Cell Distribution Width 15 % (10-15); White Blood Count 4.7 10^3/uL (3.5-10.8)
[2022-02-27 07:35] LABS: Calcium 8.6 mg/dL (8.6-10.3); Creatinine, Serum 0.64 mg/dL (0.67-1.17); Potassium 4.2 mmol/L (3.5-5.0); eGFR CKD-EPI 106.4 (>60)
[2022-02-27] MEDS: Polyethylene Glycol 3350 17 GM PACKET PO SCH (08:12)
[2022-02-27] MEDS: Pantoprazole 80 mg in NS BAG 80 MG/250 ML BAG IV SCH ×2 (08:51→18:37)
[2022-02-27] MEDS ORDERED: Sucralfate 1 gm SUSP 1 GM/10 ML UDC PO SCH (09:00)
[2022-02-27] MEDS: Sucralfate 1 gm SUSP 1 GM/10 ML UDC PO SCH ×3 (10:42→22:46)
[2022-02-27] MEDS ORDERED: Senna TAB 8.6 mg TAB PO PRN (16:22)
[2022-02-27] MEDS: CMCS:Alfuzosin ER 10 mg TAB.ER (NF) 10 MG TAB.ER PO SCH (22:46)
[2022-02-28 06:52] LABS: ABS Eosinophils 0.1 10^3/ul (0-0.6); ABS Lymphocytes 1.3 10^3/ul (1.0-4.8); ABS Monocytes 0.4 10^3/ul (0-0.8); ABS Neutrophils 2.2 10^3/ul (1.5-7.7); Eosinophil % 2.9 %; Hematocrit 22 % (42-52); Hemoglobin 7.1 g/dL (14.0-18.0); Lymphocyte % 32.1 %; Mean Corpuscular HGB Conc 33 g/dL (31-36); Mean Corpuscular Hemoglobin 33 pg (27-31); Mean Corpuscular Volume 100 fL (80-94); Mean Platelet Volume 9.4 fL (7.4-10.4); Platelet Count 205 10^3/uL (150-450); Red Blood Count 2.18 10^6 /uL (4.18-5.48); Red Cell Distribution Width 15 % (10-15)
[2022-02-28] MEDS: Sucralfate 1 gm SUSP 1 GM/10 ML UDC PO SCH ×2 (07:38→11:21)
[2022-02-28 07:46] LABS: Calcium 8.4 mg/dL (8.6-10.3); Creatinine, Serum 0.61 mg/dL (0.67-1.17); Potassium 4.1 mmol/L (3.5-5.0); eGFR CKD-EPI 107.9 (>60)
[2022-02-28] MEDS: Polyethylene Glycol 3350 17 GM PACKET PO SCH (09:24)
[2022-02-28 10:50] VITALS: BP 111/71
== END 2022-02-28 15:00 | disposition home or self-care (01) | DRG 241 ==
LOC: ED 19:48 → EDHOLD 19:48 → SUATTDRO 02-22 00:18 → MED 02-22 00:49 → SUATTDRO 02-23 17:00
PROVIDERS: ADMIT Internal Medicine; ATTEND Student in an Organized Health Care Education/Training Program
PROC: O.GIEGD (2022-02-25 15:40)

== ENCOUNTER 2023-06-12 14:36 | Observation (INO) ==
[2023-06-12 15:55] LABS: ABS Eosinophils 0.1 10^3/uL (0.0-0.5); ABS Lymphocytes 1.1 10^3/uL (1.0-4.8); ABS Monocytes 1.2 10^3/uL (0.0-1.1); ABS Neutrophils 10.6 10^3/uL (1.5-7.6); ABS Nucleated RBC 0.01 10^3/ul; Eosinophil % 0.7 %; Hematocrit 34.6 % (38-53); Hemoglobin 11.5 g/dL (13.2-16.3); Lymphocyte % 8.2 %; Mean Corpuscular Hemoglobin 32.1 pg (27-33); Mean Corpuscular Hgb Conc 33.2 g/dL (31-36); Mean Corpuscular Volume 96.8 fL (80-97); Mean Platelet Volume 8.9 fL (7.5-11.2); Nucleated Red Blood Cells % 0.1 %/100WBC (0.0-0.8); Platelet Count 173 10^3/uL (150-450); Red Blood Count 3.57 10^6/uL (4.06-5.63); Red Cell Distribution Width 13.8 % (12-17); White Blood Count 12.9 10^3/uL (3.6-10.2)
[2023-06-12 16:17] LABS: INR 1.06 (0.83-1.13)
[2023-06-12 16:48] LABS: Albumin 3.3 g/dL (3.2-5.2); Albumin/Globulin Ratio 1.9 (1-3); Calcium 8.4 mg/dL (8.6-10.3); Creatinine, Serum 0.51 mg/dL (0.67-1.17); Globulin 1.7 g/dL (2-4); Magnesium 1.8 mg/dL (1.9-2.7); Potassium 3.8 mmol/L (3.5-5.0); Total Bilirubin 0.5 mg/dL (0.2-1.0); eGFR CKD-EPI 113.2 (>60)
[2023-06-12] MEDS: Iohexol 300 (CONTRAST) 10 ML SDV IV ONE (17:18)
[2023-06-12] MEDS ORDERED: Ondansetron 4 mg VIAL 2 MG/ML 2 ml VIAL IV PRN (18:02)
[2023-06-12] MEDS: Lactated Ringers 1000 ml BAG 1,000 ML IV SCH (20:58)
[2023-06-13] MEDS: Acetaminophen IV 1 GM/100ML 1,000 MG/100 ML BAG IV PRN (05:01)
[2023-06-13 05:38] LABS: ABS Eosinophils 0.2 10^3/uL (0.0-0.5); ABS Lymphocytes 1.2 10^3/uL (1.0-4.8); ABS Monocytes 0.9 10^3/uL (0.0-1.1); ABS Neutrophils 8.5 10^3/uL (1.5-7.6); Eosinophil % 1.5 %; Hematocrit 33.2 % (38-53); Hemoglobin 11.4 g/dL (13.2-16.3); Lymphocyte % 11.3 %; Mean Corpuscular Hemoglobin 33.1 pg (27-33); Mean Corpuscular Hgb Conc 34.4 g/dL (31-36); Mean Corpuscular Volume 96.4 fL (80-97); Mean Platelet Volume 9.1 fL (7.5-11.2); Platelet Count 165 10^3/uL (150-450); Red Blood Count 3.44 10^6/uL (4.06-5.63); Red Cell Distribution Width 13.8 % (12-17); White Blood Count 10.7 10^3/uL (3.6-10.2)
[2023-06-13 05:57] LABS: Albumin 3.1 g/dL (3.2-5.2); Albumin/Globulin Ratio 1.9 (1-3); Calcium 8.5 mg/dL (8.6-10.3); Creatinine, Serum 0.44 mg/dL (0.67-1.17); Globulin 1.6 g/dL (2-4); Potassium 3.9 mmol/L (3.5-5.0); Total Bilirubin 0.8 mg/dL (0.2-1.0); Total Protein 4.7 g/dL (6.4-8.9); eGFR CKD-EPI 118.4 (>60)
[2023-06-13] MEDS: Pantoprazole VIAL 40 MG VIAL IV SCH (07:22)
[2023-06-13] MEDS: DULoxetine DR 60 mg CAP PO SCH (07:23)
[2023-06-13] MEDS: Buprenorp/Nalox 2-0.5 mg SL TB SL PRN (07:23)
[2023-06-14 10:03] VITALS: BP 115/85
== END 2023-06-14 13:00 | disposition home or self-care (01) ==
LOC: EDHOLD 14:36 → ED 14:36 → SSU 21:07
PROVIDERS: ADMIT Surgery; ATTEND Surgery